=== PATIENT | male | born 1960 | race African-American/Black ===

== ENCOUNTER → 2019-11-07 | Day surgery (SDC) | payer MEDICARE ==
[2019-11-05 16:18] LABS: BASOPHILS % 0.1 % (0.0-1.0); EOSINOPHILS % 0.2 % (0.0-6.0); HEMATOCRIT 39.2 % (38.2-49.6); HEMOGLOBIN 12.5 g/dL (14.0-18.0); LYMPHOCYTES # (AUTO) 0.9 (1.0-3.2); LYMPHOCYTES % 6.9 % (18.0-39.1); MEAN CORPUSCULAR HEMOGLOBIN 30.7 pg (28-32); MEAN CORPUSCULAR HGB CONC 31.9 g/dL (31-35); MEAN CORPUSCULAR VOLUME 96.3 fL (81-99); MONOCYTES # (AUTO) 1.3 (0.2-0.8); MONOCYTES % 9.3 % (4.4-11.3); NEUTROPHILS % 82.5 % (38.7-80.0); PLATELET COUNT 196 x10e3/uL (140-360); RED BLOOD COUNT 4.07 x10e6/uL (4.3-5.7); RED CELL DISTRIBUTION WIDTH 15.7 % (11.7-14.4)
[~2019-11-07] MED LIST: ADVAIR 250-501 EACH INH; AMLODIPINE BESY10 MG PO; ASPIR-LOW81 MG PO; ATORVASTATIN CA20 MG PO; BACLOFEN10 MG PO; BACTRIM DS TAB1 EACH PO; CELEBREX100 MG PO; CLOPIDOGREL75 MG PO; CYMBALTA30 MG PO; DIPHENHYDRAMINE25 M1 PO; FENTANYL CITRATE/PF 100MCG/2 ML INJ ONE; GENTAMYCIN TOP; IOPAMIDOL 200 MG/ML 20 ML VIAL IT ONE; LASIX40 MG PO; LEVOTHYROXINE112 MCG PO; LIDOCAINE HCL 1% 30ML-PF VIAL ONE; LIDOCAINE HCL 2% LOCAL INJ 5 ML SDV VIAL INJ ONE; LISINOPRIL10 MG PO; LYRICA50 MG PO; METOPROLOL TART50 MG PO; MIDAZOLAM HCL 2 MG/2 ML VIAL ONE; MUPIROCIN22 GM TOP; MYCOPHENOLATE250 MG PO; NOVOLOG100 UNIT/1 SC; ONDANSETRON2 MG/1 ML PO; POTASSIUM CHLO20 ME1 PO; PREDNISONE10 MG PO; PROPOFOL IV EMULSION 10 MG/ML 20 ML VIAL ONE; PYRIDOSTIGMINE60 MG PO; SPIRIVA18 MCG INH; SUCRALFATE1 GM PO; TOPIRAMATE25 MG PO; TRIAMCINOLONE ACET 40 MG/ML VIAL ONE; VENTOLIN HFA18 GM INH; VITAMIN D22000 UNIT PO
[2019-11-07 07:45] VITALS: BP 150/91
== END | disposition home or self-care (01) ==
LOC: OR 05:50
PROVIDERS: ATTEND Physical Medicine & Rehabilitation Pain Medicine
DX: M54.12 Radiculopathy, cervical region (principal); M47.896 Other spondylosis, lumbar region; M54.16 Radiculopathy, lumbar region; M48.061 Spinal stenosis, lumbar region without neurogenic claudication; I10 Essential (primary) hypertension; E03.9 Hypothyroidism, unspecified; E11.9 Type 2 diabetes mellitus without complications; L50.8 Other urticaria; G70.00 Myasthenia gravis without (acute) exacerbation; I89.0 Lymphedema, not elsewhere classified; J44.9 Chronic obstructive pulmonary disease, unspecified; F17.210 Nicotine dependence, cigarettes, uncomplicated; Z88.8 Allergy status to other drugs, medicaments and biological substances; Z01.812 Encounter for preprocedural laboratory examination; Z79.02 Long term (current) use of antithrombotics/antiplatelets; Z79.82 Long term (current) use of aspirin; Z79.4 Long term (current) use of insulin
CPT/HCPCS: 36415 ×2; 64490; 64493; 64494; 64495; 82948; 85025; J2001 ×2; J2250; J2704; J3010; J3301; Q9967; 77003